=== PATIENT | female | born 2000 | race Caucasian/White ===

== ENCOUNTER 2022-10-03 02:40 | Inpatient (IN) ==
[2022-10-03] MEDS ORDERED: LIDOCAINE 1% LOCAL 20 ML VIAL INFIL PRN (03:40)
[2022-10-03] MEDS ORDERED: OXYTOCIN 30 UNITS/500 ML BAG IV PRN ×3 (03:40→19:51)
[2022-10-03 04:26] LABS: Hematocrit (blood only) 35.9 % (37.0-47.0); Hemoglobin 12.5 g/dl (12.0-16.0); Mean Corpuscular Hemoglobin 30.3 pg (25.0-34.0); Mean Corpuscular Hgb Conc 34.8 g/dL (32.0-36.0); Mean Corpuscular Volume 87.1 fL (80.0-100.0); Platelet Count 229 K/uL (130-400); RDW Coefficient of Variation 12.2 % (11.5-14.5); RDW Standard Deviation 38.7 fL (36.4-46.3); Red Blood Count 4.12 M/uL (4.20-5.40); White Blood Count 14.34 K/ul (4.8-10.8)
--- NOTE | 2022-10-03 06:45 | History & Physical Report ---
Date of Service October 03, 2022 Assessment & Plan (1) Encounter for supervision of normal intrauterine in primigravida, antepartum: Plan: 22-year-old with 30 weeks 0 days gestational age presents with spontaneous rupture of membranes early labor. 1. Fetus: Cat 1 2. Labor:early. Will augment PRN 3.GBS negative. 4. Vitals WNL (2) Large for gestational age fetus affecting management of mother: (3) SROM (spontaneous rupture of membranes): History of Present Illness Primary Care Provider: NO PCP 22-year-old currently at 30 weeks 0 days gestational age presents with spontaneous rupture of membranes And early labor. complicated by BMI greater than 35 and suspected large for gestational age with EFW at the 90th percentile. OB Labs: Blood Type O Positive 02/24/22 Antibody Screen NEGATIVE 02/24/22 Hemoglobin 12.1 g/dl (12.0-16.0) 07/28/22 Hematocrit 35.0 % (37.0-47.0) L 07/28/22 Mean Corpuscular Volume 88.2 fL (80.0-100.0) 03/10/22 Platelet Count 246 K/uL (130-400) 03/10/22 Rubella IgG Antibody Immune (Immune) 02/24/22 Rapid Plasma Reagin Nonreactive (Nonreactive) 02/24/22 Hepatitis B Surface Antigen. NON-REACTIVE (NON-REACTIVE) 02/24/22 Hepatitis C Antibody (EIA) NON-REACTIVE (NON-REACTIVE) 02/24/22 HIV (1&2) Ag and Ab Confirmation NON-REACTIVE (NON-REACTIVE) 02/24/22 Glucose 1 Hour 50 gm Load 112 mg/dl (70-130) 07/28/22 OB Optional Labs: Chlamydia trachomatis RNA NOT DETECTED (NOT DETECTED) 02/24/22 Neisseria gonorrhoeae RNA NOT DETECTED (NOT DETECTED) 02/24/22 Labs Reviewed: declined genetic testing, qs, afp--akh Allergies Allergy/AdvReac Type Severity Reaction Status Date / Time bee venom protein (honey bee) Allergy Severe Anaphylaxis Verified 10/03/22 03:01 Home Medications Medication Instructions Recorded Confirmed Type prenat.vits,babak,[id number] 1 tab PO DAILY 10/03/22 10/03/22 History Patient History Medical History (Updated 10/03/22 @ 06:46 by Jose Hernandez MD) Small for dates affecting management of mother Varicella vaccination Surgical History History of appendectomy Family History Father Diabetes Hypertension Other Heart disease Myocardial infarction Denies family history of Ovarian cancer Prostate cancer Breast cancer Colorectal cancer Social History Smoking Status: Never smoker Second Hand Exposure: No; Hx Alcohol Use: No Hx Substance Use: No Preferred Language: Brazilian Communication Ability: Effective Visual Impairment: No Limitations Hearing Ability: Normal Province Archivist Required: No Beliefs That Will Affect Care: None marital status: marital status details: Renan Welch (22) [phone] Current Living Situation: Spouse Current Living Situation Comment: Lives with spouse and dog current occupational status: employed 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 Other Information That Helps Us Care for You: No Feels Safe at Home: Yes Assistive Devices: None Physical Exam Genitourinary: normal external appearance OB Exam Abdomen: + vertex Manual OB Exam: + cervical dilation 2 cm, + cervical effacement 70%, + station - 2 and + amniotic fluid clear OB Exam Monitor Tracing: + external FHT monitor used, + external uterine monitor used, + category I and + normal FHT variability; no early decelerations present, no late decelerations present and no variable decelerations Results & Data Vital Signs (Past 12 Hours) Vital Signs Temp Pulse Resp BP 10/03/22 02:57 36.6 C 123 H 18 136/84 Coding Level of Care Code None Diagnoses Encounter for supervision of normal intrauterine in primigravida, antepartum Z34.00 Large for gestational age fetus affecting management of mother O36.60X0 SROM (spontaneous rupture of membranes)
--- NOTE | 2022-10-03 07:03 | Labor Progress Brief Note ---
Date of Service October 03, 2022 Subjective Reason For Note: Routine Evaluation reporting contraction intensity had increased slightly. Reporting contractions moderate Assessment & Plan (1) Encounter for supervision of normal intrauterine in primigravida, antepartum: Plan: 22-year-old with 30 weeks 0 days gestational age presents with spontaneous rupture of membranes early labor. 1. Fetus: Cat 1 2. Labor: cervix unchanged. will start Pitocin 3. .GBS negative. 4. Vitals WNL (2) Large for gestational age fetus affecting management of mother: (3) SROM (spontaneous rupture of membranes): Admission and Anticipated Discharge Date Admission Date: October 03, 2022 Physical Exam Genitourinary: Manual OB Exam: + cervical dilation 2 cm, + cervical effacement 70%, + station -2 and + amniotic fluid clear OB Exam Monitor Tracing: + external FHT monitor used, + external uterine monitor used, + category I and + normal FHT variability; no early decelerations present, no late decelerations present and no variable decelerations Results & Data Vital Signs (Past 12 Hours) Vital Signs Temp Pulse Resp BP 10/03/22 06:08 37.1 C 102 H 18 134/76 10/03/22 06:06 108 H 142/94 H 10/03/22 02:57 36.6 C 123 H 18 136/84 Coding Level of Care Code None Diagnoses Encounter for supervision of normal intrauterine in primigravida, antepartum Z34.00 Large for gestational age fetus affecting management of mother O36.60X0 SROM (spontaneous rupture of membranes)
[2022-10-03] MEDS: LACTATED RINGER'S 1,000 ML IV PRN ×3 (07:25→13:23)
[2022-10-03] MEDS ORDERED: ePHEDrine sulfate 50 MG/ML AMP ONE (10:24)
[2022-10-03] MEDS ORDERED: SODIUM CHLORIDE 0.9% PF INJ 10 ML VIAL ONE ×2 (10:25→17:23)
[2022-10-03] MEDS ORDERED: fentaNYL citrate PF 100 MCG/2 ML VIAL ONE ×2 (10:25→17:23)
[2022-10-03] MEDS ORDERED: BUPIVACAINE 0.25% PF 30 ML VIAL ONE ×2 (10:25→17:22)
[2022-10-03] MEDS ORDERED: LIDOCAINE 2%/EPINEPHRINE 1:200,000 20 ML PF ONE (10:25)
[2022-10-03] MEDS ORDERED: fentaNYL 2MCG/ML ROPIVACAINE 1.25MG/ML 100 ML BAG EPI ONE (10:26)
[2022-10-03] MEDS ORDERED: NALBUPHINE HCL INJ 10 MG/ML AMP IV PRN (10:34)
[2022-10-03] MEDS ORDERED: NALOXONE HCL 0.4 MG/1 ML VIAL/CARP IV PRN (10:34)
[2022-10-03] MEDS ORDERED: NALOXONE HCL 1 MG in SODIUM CHLORIDE 0.9% 1000ML 1,000 ML IV PRN (10:34)
[2022-10-03] MEDS ORDERED: fentaNYL 2MCG/ML ROPIVACAINE 1.25MG/ML 100 ML BAG EPI PRN (10:34)
[2022-10-03] MEDS ORDERED: ePHEDrine sulfate 50 MG/ML AMP IV PRN (10:34)
[2022-10-03] MEDS ORDERED: diphenhydrAMINE 50 MG/ML VIAL IV PRN (10:34)
--- NOTE | 2022-10-03 10:34 | Anesthesiology Consultation ---
Date of Service October 03, 2022 Assessment & Plan (1) Encounter for pre-operative examination: Chart Review Chart Review: Patient NOT seen in Pre Admission Testing and Acceptable Risk for Labor Epidural Consults Requested none History Height/Weight Height: 5 ft Weight: 108.862 kg Allergies Allergy/AdvReac Type Severity Reaction Status Date / Time bee venom protein (honey bee) Allergy Severe Anaphylaxis Verified 10/03/22 03:01 Medications Home Medications Medication Instructions Recorded Confirmed Last Taken prenat.vits,babak,[id number] 1 tab PO DAILY 10/03/22 10/03/22 10/02/22 Active Medications Generic Name Dose Route Start Last Admin Trade Name Freq PRN Reason Stop Dose Admin Lactated Ringer's 1,000 mls @ 125 mls/hr 10/03/22 03:40 10/03/22 07:25 Lr IV 10/05/22 03:39 125 mls/hr .Q8H PRN Administration L&D Protocol Protocol Oxytocin 30 units in 500 mls @ 12 mls/hr 10/03/22 07:01 10/03/22 10:05 Pitocin IV 10/05/22 07:00 0.72 units/hr .Q24H PRN 12 mls/hr Labor Induction/Augmentation Titration Protocol 0.72 UNITS/HR Past Medical History Medical History Small for dates affecting management of mother Varicella vaccination Past Family History Family History Father Diabetes Hypertension Other Heart disease Myocardial infarction Denies family history of Ovarian cancer Prostate cancer Breast cancer Colorectal cancer Past Surgical History Surgical History History of appendectomy Social History Smoking Status: Never smoker Hx Alcohol Use: No Hx Substance Use: No substance use type: does not use Physical Exam Vital Signs Last Vital Signs Temp 98.4 F 10/03/22 09:20 Pulse 105 H 10/03/22 09:32 Resp 20 10/03/22 09:20 BP 136/86 10/03/22 09:32 Testing Laboratory Results 10/03/22 03:57 Blood Type O Positive 10/03/22 03:57 Antibody Screen NEGATIVE 10/03/22 03:57
--- NOTE | 2022-10-03 13:38 | Labor Progress Brief Note ---
Date of Service October 03, 2022 Subjective comfortable Assessment & Plan (1) SROM (spontaneous rupture of membranes): Plan restart pitocin, fetus category one. resume pitocin. Monitor contractions. Admission and Anticipated Discharge Date Admission Date: October 03, 2022 Physical Exam Physical Exam: cx--5-6//-2 iupc placed toco--had a break from the pit, fht improved, restarting at 1/2 efm--150s with min to mod variability, accels present spontaneous, did have a p eriod of ? late decels that have resolved. Results & Data Vital Signs (Past 12 Hours) Vital Signs Temp Pulse Resp BP Pulse Ox 10/03/22 07:20 36.7 C 20 10/03/22 13:30 110 H 98 10/03/22 13:28 95 H 131/63 10/03/22 13:25 98 H 98 10/03/22 13:20 104 H 98 10/03/22 13:15 101 H 99 10/03/22 13:14 102 H 125/65 10/03/22 13:13 104 H 90 10/03/22 13:10 106 H 98 10/03/22 13:05 102 H 98 10/03/22 13:00 96 H 98 10/03/22 12:58 94 H 135/64 10/03/22 12:55 96 H 96 10/03/22 12:50 101 H 96 10/03/22 12:45 113 H 95 10/03/22 12:43 99 H 120/58 L 10/03/22 12:41 110 H 90 10/03/22 12:40 115 H 94 10/03/22 12:35 110 H 97 10/03/22 12:30 104 H 96 10/03/22 12:28 99 H 108/55 L 10/03/22 12:25 109 H 98 10/03/22 12:01 20 10/03/22 12:01 20 10/03/22 12:20 110 H 97 10/03/22 12:15 114 H 20 96 10/03/22 12:10 104 H 118/60 97 10/03/22 12:05 105 H 122/64 98 10/03/22 12:02 101 H 132/69 10/03/22 12:00 102 H 91 10/03/22 11:55 92 H 04/23 11:55 92 H 127/85 99 10/03/22 11:51 97 H 121/72 10/03/22 11:50 96 H 100 10/03/22 11:45 97 H 100 10/03/22 11:46 93 H 20 117/73 10/03/22 11:40 97 H 121/68 99 10/03/22 11:37 96 H 123/62 10/03/22 11:35 106 H 100 10/03/22 11:31 96 H 91 10/03/22 11:30 95 H 20 100 10/03/22 11:25 101 H 99 10/03/22 11:22 93 H 115/69 10/03/22 11:20 93 H 10/03/22 11:20 98 H 117/69 100 10/03/22 11:16 88 118/60 10/03/22 11:14 82 93 10/03/22 11:15 37.0 C 79 20 95 10/03/22 11:12 113 H 91/45 L 10/03/22 11:10 121 H 93/51 L 98 10/03/22 11:08 126 H 104/55 L 10/03/22 11:06 114 H 114/59 L 10/03/22 11:05 109 H 99 10/03/22 11:04 111 H 135/81 10/03/22 11:02 95 H 135/76 10/03/22 11:00 93 H 97 10/03/22 10:59 92 H 139/83 10/03/22 10:55 115 H 99 10/03/22 10:53 117 H 140/92 10/03/22 10:50 102 H 98 10/03/22 10:49 106 H 134/92 10/03/22 09:20 20 10/03/22 09:20 36.9 C 20 10/03/22 09:32 105 H 136/86 10/03/22 08:27 98 H 128/74 10/03/22 07:16 95 H 136/68 10/03/22 06:08 37.1 C 102 H 18 134/76 10/03/22 06:06 108 H 142/94 H 10/03/22 02:57 36.6 C 123 H 18 136/84 Coding Level of Care Code None Diagnoses SROM (spontaneous rupture of membranes)
--- NOTE | 2022-10-03 15:47 | Labor Progress Brief Note ---
Date of Service October 03, 2022 Subjective comfortable Assessment & Plan (1) SROM (spontaneous rupture of membranes): Plan continue careful monitoring of fetus. Overall reassuring strip and making good changed. Halved pit. Monitor closely. Concerned by position, still high. Admission and Anticipated Discharge Date Admission Date: October 03, 2022 Physical Exam Physical Exam: bloody show cx--8-9cm/100/0 toco--q2-4min, coupling and tripling, decreased pit from 14 to 7 efm--150s with mod variability, small accels, variables with some contractions, occasional ? late, resolving with position changes Results & Data Vital Signs (Past 12 Hours) Vital Signs Temp Pulse Resp BP Pulse Ox 10/03/22 07:20 36.7 C 20 10/03/22 15:42 129 H 122/69 10/03/22 15:39 96 H 94 10/03/22 15:40 96 H 96 10/03/22 15:35 97 H 96 10/03/22 15:30 100 H 97 10/03/22 15:27 96 H 118/58 L 10/03/22 15:25 95 H 97 10/03/22 15:20 97 H 96 10/03/22 15:15 113 H 95 10/03/22 15:12 107 H 124/70 10/03/22 15:10 109 H 97 10/03/22 15:05 98 H 95 10/03/22 15:00 96 H 96 10/03/22 14:58 90 124/62 10/03/22 14:55 99 H 96 10/03/22 14:50 118 H 97 10/03/22 14:45 101 H 97 10/03/22 14:44 97 H 133/63 10/03/22 14:40 108 H 97 10/03/22 14:35 109 H 96 10/03/22 14:30 107 H 97 10/03/22 14:27 93 H 126/58 L 10/03/22 14:25 93 H 97 10/03/22 14:20 102 H 99 10/03/22 14:15 102 H 98 10/03/22 14:12 96 H 135/65 10/03/22 14:10 90 97 10/03/22 14:07 94 H 93 10/03/22 14:05 90 97 10/03/22 14:00 107 H 97 10/03/22 13:59 102 H 132/89 10/03/22 13:55 103 H 97 10/03/22 13:50 98 H 97 10/03/22 13:45 97 H 98 10/03/22 13:01 20 10/03/22 13:01 20 10/03/22 13:43 94 H 139/73 10/03/22 13:40 98 H 96 10/03/22 13:35 109 H 97 10/03/22 13:30 110 H 98 10/03/22 13:28 95 H 131/63 10/03/22 13:25 98 H 98 10/03/22 13:20 104 H 98 10/03/22 13:15 101 H 99 10/03/22 13:14 102 H 125/65 10/03/22 13:13 104 H 90 10/03/22 13:10 106 H 98 10/03/22 13:05 102 H 98 10/03/22 13:00 96 H 98 10/03/22 12:58 94 H 135/64 10/03/22 12:55 96 H 96 10/03/22 12:50 101 H 96 10/03/22 12:45 113 H 20 95 10/03/22 12:43 99 H 120/58 L 10/03/22 12:41 110 H 90 10/03/22 12:40 115 H 94 10/03/22 12:35 110 H 97 10/03/22 12:30 36.5 C 104 H 20 96 10/03/22 12:28 99 H 108/55 L 10/03/22 12:25 109 H 98 10/03/22 12:01 20 10/03/22 12:01 20 10/03/22 12:20 110 H 97 10/03/22 12:15 114 H 20 96 10/03/22 12:10 104 H 118/60 97 10/03/22 12:05 105 H 122/64 98 10/03/22 12:02 101 H 132/69 10/03/22 12:00 102 H 91 10/03/22 11:55 92 H 10/03/22 11:55 92 H 127/85 99 10/03/22 11:51 97 H 121/72 10/03/22 11:50 96 H 100 10/03/22 11:45 97 H 100 10/03/22 11:46 93 H 20 117/73 10/03/22 11:40 97 H 121/68 99 10/03/22 11:37 96 H 123/62 10/03/22 11:35 106 H 100 10/03/22 11:31 96 H 91 10/03/22 11:30 95 H 20 100 10/03/22 11:25 101 H 99 10/03/22 11:22 93 H 115/69 10/03/22 11:20 93 H 10/03/22 11:20 98 H 117/69 100 10/03/22 11:16 88 118/60 10/03/22 11:14 82 93 10/03/22 11:15 37.0 C 79 20 95 10/03/22 11:12 113 H 91/45 L 10/03/22 11:10 121 H 93/51 L 98 10/03/22 11:08 126 H 104/55 L 10/03/22 11:06 114 H 114/59 L 10/03/22 11:05 109 H 99 10/03/22 11:04 111 H 135/81 10/03/22 11:02 95 H 135/76 10/03/22 11:00 93 H 97 10/03/22 10:59 92 H 139/83 10/03/22 10:55 115 H 99 10/03/22 10:53 117 H 140/92 10/03/22 10:50 102 H 98 10/03/22 10:49 106 H 134/92 10/03/22 09:20 20 10/03/22 09:20 36.9 C 20 10/03/22 09:32 105 H 136/86 10/03/22 08:27 98 H 128/74 10/03/22 07:16 95 H 136/68 10/03/22 06:08 37.1 C 102 H 18 134/76 10/03/22 06:06 108 H 142/94 H Coding Level of Care Code None Diagnoses SROM (spontaneous rupture of membranes)
--- NOTE | 2022-10-03 15:59 | Communication Note ---
Date of Service: October 03, 2022 Having more late appearing decels. Pitocin now off. Will see how baby does. If recovers, will continue but probably keep pit off. Monitor closely.
--- NOTE | 2022-10-03 16:31 | Communication Note ---
Date of Service: October 03, 2022 ctx have spaced. fht have improved, late appearing decels have resolved. +spon accels. Notes pressure with contractions. Will allow to labor down at this point.
--- NOTE | 2022-10-03 17:04 | Labor Progress Brief Note ---
Date of Service October 03, 2022 Subjective Feeling lots of pressure with contractions Assessment & Plan (1) SROM (spontaneous rupture of membranes): Plan Will attempt to labor down. May need to consider epidural redose. fetus overall reassuring. Admission and Anticipated Discharge Date Admission Date: October 03, 2022 Physical Exam Physical Exam: cx--slight lip on right toco--q4min efm--150s with mod variabiltiy, accels present, decels have pretty much resolved. Results & Data Vital Signs (Past 12 Hours) Vital Signs Temp Pulse Resp BP Pulse Ox 10/03/22 07:20 36.7 C 20 10/03/22 17:00 98 H 95 10/03/22 16:57 105 H 147/80 H 10/03/22 16:55 112 H 99 10/03/22 16:50 123 H 98 10/03/22 16:45 107 H 97 10/03/22 16:42 103 H 141/74 H 10/03/22 16:40 104 H 98 10/03/22 16:35 110 H 100 10/03/22 16:30 106 H 100 10/03/22 16:28 102 H 144/71 H 10/03/22 16:25 119 H 99 10/03/22 16:20 107 H 100 10/03/22 16:17 100 H 93 10/03/22 16:15 107 H 100 10/03/22 16:10 106 H 100 10/03/22 16:05 104 H 92 10/03/22 16:00 101 H 97 10/03/22 15:59 96 H 93 10/03/22 15:57 105 H 130/71 10/03/22 15:55 97 H 98 10/03/22 15:50 96 H 97 10/03/22 15:45 103 H 97 10/03/22 15:42 129 H 122/69 10/03/22 15:39 96 H 94 10/03/22 15:40 96 H 96 10/03/22 15:35 97 H 96 10/03/22 15:30 100 H 97 10/03/22 15:27 96 H 118/58 L 10/03/22 15:25 95 H 97 10/03/22 15:20 97 H 96 10/03/22 15:15 113 H 95 10/03/22 15:12 107 H 124/70 04/03/23 15:10 109 H 97 10/03/22 15:05 98 H 95 10/03/22 15:00 96 H 96 10/03/22 14:58 90 124/62 10/03/22 14:55 99 H 96 10/03/22 14:50 118 H 97 10/03/22 14:45 101 H 97 10/03/22 14:44 97 H 133/63 10/03/22 14:40 108 H 97 10/03/22 14:35 109 H 96 10/03/22 14:30 107 H 97 10/03/22 14:27 93 H 126/58 L 10/03/22 14:25 93 H 97 10/03/22 14:20 102 H 99 10/03/22 14:15 102 H 98 10/03/22 14:12 96 H 135/65 10/03/22 14:10 90 97 10/03/22 14:07 94 H 93 10/03/22 14:05 90 97 10/03/22 14:00 107 H 97 10/03/22 13:59 102 H 132/89 10/03/22 13:55 103 H 97 10/03/22 13:50 98 H 97 10/03/22 13:45 97 H 98 10/03/22 13:01 20 10/03/22 13:01 20 10/03/22 13:43 94 H 139/73 10/03/22 13:40 98 H 96 10/03/22 13:35 109 H 97 10/03/22 13:30 110 H 98 10/03/22 13:28 95 H 131/63 10/03/22 13:25 98 H 98 10/03/22 13:20 104 H 98 10/03/22 13:15 101 H 99 10/03/22 13:14 102 H 125/65 10/03/22 13:13 104 H 90 10/03/22 13:10 106 H 98 10/03/22 13:05 102 H 98 10/03/22 13:00 96 H 98 10/03/22 12:58 94 H 135/64 10/03/22 12:55 96 H 96 10/03/22 12:50 101 H 96 10/03/22 12:45 113 H 20 95 10/03/22 12:43 99 H 120/58 L 04/03/23 12:41 110 H 90 10/03/22 12:40 115 H 94 10/03/22 12:35 110 H 97 10/03/22 12:30 36.5 C 104 H 20 96 10/03/22 12:28 99 H 108/55 L 10/03/22 12:25 109 H 98 10/03/22 12:01 20 10/03/22 12:01 20 10/03/22 12:20 110 H 97 10/03/22 12:15 114 H 20 96 10/03/22 12:10 104 H 118/60 97 10/03/22 12:05 105 H 122/64 98 10/03/22 12:02 101 H 132/69 10/03/22 12:00 102 H 91 10/03/22 11:55 92 H 10/03/22 11:55 92 H 127/85 99 10/03/22 11:51 97 H 121/72 10/03/22 11:50 96 H 100 10/03/22 11:45 97 H 100 10/03/22 11:46 93 H 20 117/73 10/03/22 11:40 97 H 121/68 99 10/03/22 11:37 96 H 123/62 10/03/22 11:35 106 H 100 10/03/22 11:31 96 H 91 10/03/22 11:30 95 H 20 100 10/03/22 11:25 101 H 99 10/03/22 11:22 93 H 115/69 10/03/22 11:20 93 H 10/03/22 11:20 98 H 117/69 100 10/03/22 11:16 88 118/60 10/03/22 11:14 82 93 10/03/22 11:15 37.0 C 79 20 95 10/03/22 11:12 113 H 91/45 L 10/03/22 11:10 121 H 93/51 L 98 10/03/22 11:08 126 H 104/55 L 10/03/22 11:06 114 H 114/59 L 10/03/22 11:05 109 H 99 10/03/22 11:04 111 H 135/81 10/03/22 11:02 95 H 135/76 10/03/22 11:00 93 H 97 10/03/22 10:59 92 H 139/83 10/03/22 10:55 115 H 99 10/03/22 10:53 117 H 140/92 10/03/22 10:50 102 H 98 10/03/22 10:49 106 H 134/92 10/03/22 09:20 20 10/03/22 09:20 36.9 C 20 10/03/22 09:32 105 H 136/86 10/03/22 08:27 98 H 128/74 10/03/22 07:16 95 H 136/68 10/03/22 06:08 37.1 C 102 H 18 134/76 10/03/22 06:06 108 H 142/94 H Coding Level of Care Code None Diagnoses SROM (spontaneous rupture of membranes)
[2022-10-03] MEDS ORDERED: NURSING L&D Epidural Breakthrough Pain Update ONE (17:06)
--- NOTE | 2022-10-03 17:28 | Anesthesia Procedure Note ---
Date of Service October 03, 2022 Anesthesia Epidural Re-Dose Vital Signs Temp Pulse Resp BP Pulse Ox 98.8 F 107 H 20 147/70 H 96 10/03/22 17:12 10/03/22 17:25 10/03/22 13:01 10/03/22 17:12 10/03/22 17:25 Notes Pain Intensity: 8 Dilatation (cm): 9.5 Effacement (%): 80 Heart Rate: 155 Called by nursing to evaluate epidural as the patient is having increased pain. The epidural was re-dosed with the following medications after negative aspiration of the epidural catheter for CSF/HEME. Bupivacaine (8ml) with 100 mcg Fentanyl After Epidural Re-Dose Mental Status: alert / awake / arousable Pain: improving with treatment Airway Patency, RR, SpO2: stable & adequate BP & HR: stable & adequate
--- NOTE | 2022-10-03 19:09 | Labor Progress Brief Note ---
Date of Service October 03, 2022 Subjective redosed and was comfortable, now feeling pressure again Assessment & Plan (1) SROM (spontaneous rupture of membranes): Plan Begin second stage recent temp 37.8. Anticipate . Admission and Anticipated Discharge Date Admission Date: October 03, 2022 Physical Exam Physical Exam: cx--c/c/+1-2 toco--q 3-4min, pit off efm--150s wtih mod variability, small accels, no further decels noted Results & Data Vital Signs (Past 12 Hours) Vital Signs Temp Pulse Resp BP Pulse Ox 10/03/22 07:20 36.7 C 20 10/03/22 19:05 131 H 99 10/03/22 19:00 111 H 97 10/03/22 18:56 113 H 139/90 10/03/22 18:55 114 H 96 10/03/22 18:50 111 H 97 10/03/22 18:45 109 H 97 10/03/22 18:40 101 H 142/81 H 97 10/03/22 18:35 97 H 95 10/03/22 18:30 95 H 95 10/03/22 18:28 101 H 92 10/03/22 18:25 110 H 99 10/03/22 18:24 100 H 143/73 H 10/03/22 18:20 103 H 96 10/03/22 18:15 109 H 97 10/03/22 18:10 110 H 97 10/03/22 18:05 113 H 97 10/03/22 18:00 100 H 97 10/03/22 17:55 110 H 99 10/03/22 17:54 100 H 135/68 10/03/22 17:52 100 H 94 10/03/22 17:50 107 H 95 10/03/22 17:46 105 H 94 10/03/22 17:45 102 H 97 10/03/22 17:43 100 H 146/77 H 10/03/22 17:42 100 H 145/76 H 10/03/22 17:40 101 H 150/65 H 94 10/03/22 17:39 97 H 92 10/03/22 17:38 104 H 161/75 H 10/03/22 17:36 92 H 148/64 H 10/03/22 17:35 105 H 97 10/03/22 17:34 94 H 147/65 H 93 10/03/22 17:30 105 H 97 10/03/22 17:29 108 H 152/79 H 10/03/22 17:28 122 H 84 L 10/03/22 17:25 107 H 96 10/03/22 17:20 111 H 99 10/03/22 17:15 102 H 97 10/03/22 17:13 111 H 93 10/03/22 17:12 37.1 C 100 H 147/70 H 10/03/22 17:10 108 H 86 L 10/03/22 17:07 118 H 92 10/03/22 17:05 108 H 97 10/03/22 17:01 107 H 93 10/03/22 17:00 98 H 95 10/03/22 16:57 105 H 147/80 H 10/03/22 16:55 112 H 99 10/03/22 16:50 123 H 98 10/03/22 16:45 107 H 97 10/03/22 16:42 103 H 141/74 H 10/03/22 16:40 104 H 98 10/03/22 16:35 110 H 100 10/03/22 16:30 106 H 100 10/03/22 16:28 102 H 144/71 H 10/03/22 16:25 119 H 99 10/03/22 16:20 107 H 100 10/03/22 16:17 100 H 93 10/03/22 16:15 107 H 100 10/03/22 16:10 106 H 100 10/03/22 16:05 104 H 92 10/03/22 16:00 101 H 97 10/03/22 15:59 96 H 93 10/03/22 15:57 105 H 130/71 10/03/22 15:55 97 H 98 10/03/22 15:50 96 H 97 10/03/22 15:45 103 H 97 10/03/22 15:42 129 H 122/69 10/03/22 15:39 96 H 94 10/03/22 15:40 96 H 96 10/03/22 15:35 97 H 96 10/03/22 15:30 100 H 97 10/03/22 15:27 96 H 118/58 L 10/03/22 15:25 95 H 97 10/03/22 15:20 97 H 96 10/03/22 15:15 113 H 95 10/03/22 15:12 107 H 124/70 10/03/22 15:10 109 H 97 10/03/22 15:05 98 H 95 10/03/22 15:00 96 H 96 10/03/22 14:58 90 124/62 10/03/22 14:55 99 H 96 10/03/22 14:50 118 H 97 10/03/22 14:45 101 H 97 10/03/22 14:44 97 H 133/63 10/03/22 14:40 108 H 97 10/03/22 14:35 109 H 96 10/03/22 14:30 107 H 97 10/03/22 14:27 93 H 126/58 L 10/03/22 14:25 93 H 97 10/03/22 14:20 102 H 99 10/03/22 14:15 102 H 98 10/03/22 14:12 96 H 135/65 10/03/22 14:10 90 97 10/03/22 14:07 94 H 93 10/03/22 14:05 90 97 10/03/22 14:00 107 H 97 10/03/22 13:59 102 H 132/89 10/03/22 13:55 103 H 97 10/03/22 13:50 98 H 97 10/03/22 13:45 97 H 98 10/03/22 13:01 20 10/03/22 13:01 20 10/03/22 13:43 94 H 139/73 10/03/22 13:40 98 H 96 10/03/22 13:35 109 H 97 10/03/22 13:30 110 H 98 10/03/22 13:28 95 H 131/63 10/03/22 13:25 98 H 98 10/03/22 13:20 104 H 98 10/03/22 13:15 101 H 99 10/03/22 13:14 102 H 125/65 10/03/22 13:13 104 H 90 10/03/22 13:10 106 H 98 10/03/22 13:05 102 H 98 10/03/22 13:00 96 H 98 10/03/22 12:58 94 H 135/64 10/03/22 12:55 96 H 96 10/03/22 12:50 101 H 96 10/03/22 12:45 113 H 20 95 10/03/22 12:43 99 H 120/58 L 10/03/22 12:41 110 H 90 10/03/22 12:40 115 H 94 10/03/22 12:35 110 H 97 10/03/22 12:30 36.5 C 104 H 20 96 10/03/22 12:28 99 H 108/55 L 10/03/22 12:25 109 H 98 10/03/22 12:01 20 10/03/22 12:01 20 10/03/22 12:20 110 H 97 10/03/22 12:15 114 H 20 96 10/03/22 12:10 104 H 118/60 97 10/03/22 12:05 105 H 122/64 98 10/03/22 12:02 101 H 132/69 10/03/22 12:00 102 H 91 10/03/22 11:55 92 H 10/03/22 11:55 92 H 127/85 99 10/03/22 11:51 97 H 121/72 10/03/22 11:50 96 H 100 10/03/22 11:45 97 H 100 10/03/22 11:46 93 H 20 117/73 10/03/22 11:40 97 H 121/68 99 10/03/22 11:37 96 H 123/62 10/03/22 11:35 106 H 100 10/03/22 11:31 96 H 91 10/03/22 11:30 95 H 20 100 10/03/22 11:25 101 H 99 10/03/22 11:22 93 H 115/69 10/03/22 11:20 93 H 10/03/22 11:20 98 H 117/69 100 10/03/22 11:16 88 118/60 10/03/22 11:14 82 93 10/03/22 11:15 37.0 C 79 20 95 10/03/22 11:12 113 H 91/45 L 10/03/22 11:10 121 H 93/51 L 98 10/03/22 11:08 126 H 104/55 L 10/03/22 11:06 114 H 114/59 L 10/03/22 11:05 109 H 99 10/03/22 11:04 111 H 135/81 10/03/22 11:02 95 H 135/76 10/03/22 11:00 93 H 97 10/03/22 10:59 92 H 139/83 10/03/22 10:55 115 H 99 10/03/22 10:53 117 H 140/92 10/03/22 10:50 102 H 98 10/03/22 10:49 106 H 134/92 10/03/22 09:20 20 10/03/22 09:20 36.9 C 20 10/03/22 09:32 105 H 136/86 10/03/22 08:27 98 H 128/74 10/03/22 07:16 95 H 136/68 Coding Level of Care Code None Diagnoses SROM (spontaneous rupture of membranes)
[2022-10-03] MEDS ORDERED: DIPHTHERIA/TETANUS/PERTUSSIS 0.5mL SYR/VIAL (Age 7+yrs) IM ONE (19:51)
[2022-10-03] MEDS ORDERED: METHYLERGONOVINE MALEATE 0.2 MG/ML AMP IM ONE (19:51)
[2022-10-03] MEDS ORDERED: ACETAMINOPHEN 325 MG TAB PO PRN (19:51)
[2022-10-03] MEDS ORDERED: oxyCODONE/ACETAMINOPHEN 5mg/325mg TAB PO PRN (19:51)
[2022-10-03] MEDS ORDERED: BENZOCAINE 20% AER SPR 82.5 GM CAN EXT PRN (19:51)
[2022-10-03] MEDS ORDERED: bisacodyL 10 MG SUPP PR PRN (19:51)
[2022-10-03] MEDS ORDERED: HYDROCORTISONE ACETATE 25 MG SUPP PR PRN (19:51)
--- NOTE | 2022-10-03 19:56 | Delivery Summary ---
Vaginal Delivery Summary Date of Service October 03, 2022 Vaginal Delivery Summary and 2nd Degree LAC (bilateral labial as well) Pre-operative Diagnosis: at 37 6/7 prom Post-operative Diagnosis: same Procedure: pitocin augmentation iupc second degree and bilateral labial lacs with repair EBL: 400cc Anesthesia: epidural Procedure: the patient presented with srom of clear fluid. Allowed expectant management but not change. Pit augmentation started. Got epidural. REquired iupc for contractions/pitocin management. Had a few late decels that resolved with position change, fluids and d/c pit. Eventually pitocin d/c. Pateint had epidural redosed and then labored down for two hours. Fetus during this time was category one. The patient pushed for about 30 min to deliver a viable male infant in bernabe position. The nose and mouth were bulb suctioned on the perineum and the rest of the was then delivered without difficulty. The baby was vigorous. The nose and mouth were again bulb suctioned and the infant was placed in the maternal abdomen for drying and attention. Cord was clamped and cut at one minute of life. Cord blood and segment obtained. Placenta delivered spontaneous, intact with a three vessel cord. Cervix/sulci/rectum were intact. A second degree perineal laceration and bilateral labial lacs were repaired in the normal standard fashion. Hemostasis obtained with dilute pitocin. IM methergine and fundal massage. Apgars were 8/9. Mother and baby doing well at the end of the delivery. [facility] [place] Vaginal Delivery Charge Delivery Type Details: and 2nd Degree LAC (bilateral labial as well)
[2022-10-03] MEDS ORDERED: METHYLERGONOVINE MALEATE 0.2 MG/ML AMP ONE (19:57)
[2022-10-03] MEDS: IBUPROFEN 600 MG TAB PO PRN (21:21)
[2022-10-03] MEDS: DOCUSATE SODIUM 100 MG CAP PO SCH (21:22)
--- NOTE | 2022-10-03 21:38 | Anesthesia Procedure Note ---
Date of Service October 03, 2022 Anesthesia Post Epidural Note Vital Signs Vital Signs: Temp Pulse Resp BP Pulse Ox 98.2 F 104 H 16 129/62 96 10/03/22 20:04 10/03/22 21:34 10/03/22 21:18 10/03/22 21:34 10/03/22 19:50 Pain Intensity Bilateral Abdomen: Pain Intensity: 4 Episiotomy/Laceration: Pain Intensity: 2 Notes Mental Status: alert / awake / arousable and participated in evaluation Nausea / Vomiting: adequately controlled Pain: adequately controlled Airway Patency, RR, SpO2: stable & adequate BP & HR: stable & adequate Hydration State: stable & adequate Neuraxial Anesthesia: was administered and sensory block is resolving Anesthetic Complications: no major complications apparent and Pt Satisfied with anesthetic care Epidural: Removed without complications and With tip intact
[2022-10-04] MEDS: IBUPROFEN 600 MG TAB PO PRN ×3 (05:41→22:46)
--- NOTE | 2022-10-04 06:25 | Obstetrical Progress Note ---
Date of Service October 04, 2022 Assessment & Plan (1) Encounter for care after hospital delivery: (2) Large for gestational age fetus affecting management of mother: Plan - Overall, feeling well and eating well today - Infant feeding going well without concern - Urinating and passing gas appropriately - Ambulating well in room - Pain controlled w/ Ibuprofen - Hgb 12.5 on 10/03 - Vitals stable and wnl - Follow BP: few elevations overnight, now wnl, asymptomatic at present - Routine PP care progressing well - Anticipate discharge @ 24-48 hours PP - Recommending f/u outpatient in 6 weeks Admission and Anticipated Discharge Date Admission Date: October 03, 2022 Supervising Physician Co-Signing Physician Notes Resident Physician Supervision Note: I interviewed and examined the patient. Discussed with Dr. Mckeon and agree with findings and plan as documented in the note. Any exceptions or clarifications a re listed here: Doing well ppd 1. Routine care. Documented By: Suzie Giron MD, FACOG Subjective Patient is a 22F who is PPD #1 following delivery at 38 1/. She reports feeling well overall this morning. - Ambulation - well throughout room - Voiding/Lui - independent voids, no dysuria or pressure - Gas/Stool - passing gas, no bowel movement - Diet - regular, no nausea or emesis - Lochia - diminishing, moderate amount - Feeding Type - breast feeding - Pain Level - 2/10, controlled with Ibuprofen Review of Systems - Denies fever, chills, sweats - Denies shortness of breath, difficulty breathing, chest pain, palpitations, chest pressure. - Denies breast pain. - Denies dysuria. - Denies headache or changes in vision. Physical Exam Physical Exam: General: Alert, oriented. No acute distress. Cardiac: RRR, normal S1/S2, no murmurs/rubs/gallops. Respiratory: Non-labored, CTAB, no wheezes/rales/rhonchi. Symmetric chest rise. Abdomen: Soft, nontender, nondistended. Bowel sounds present. Uterus: Uterine fundus firm, palpable 2 cm below umbilicus. Lower Extremities: No lower extremity edema or swelling. No deep calf pain. Debra's negative bilaterally. Results & Data Vital Signs (Past 12 Hours) Vital Signs Temp Pulse Pulse Resp BP BP Pulse Ox 10/04/22 02:56 36.6 C 98 H 18 118/72 97 10/03/22 21:49 36.8 C 18 10/03/22 22:13 37.4 C 101 H 18 138/83 97 10/03/22 21:18 16 10/03/22 20:49 16 10/03/22 20:34 16 10/03/22 20:19 18 10/03/22 20:04 36.8 C 16 10/03/22 19:49 18 10/03/22 19:07 37.8 C H 18 10/03/22 21:49 103 H 141/65 H 10/03/22 21:34 104 H 129/62 10/03/22 21:24 112 H 138/61 10/03/22 21:21 99 H 161/69 H 10/03/22 21:18 97 H 129/60 10/03/22 21:04 105 H 168/82 H 10/03/22 20:49 109 H 170/74 H 10/03/22 20:34 121 H 146/70 H 10/03/22 20:19 115 H 146/69 H 10/03/22 20:04 123 H 162/65 H 10/03/22 19:50 122 H 96 10/03/22 19:49 123 H 140/64 10/03/22 19:45 123 H 96 10/03/22 19:40 132 H 96 10/03/22 19:38 142 H 144/66 H 10/03/22 19:35 149 H 97 10/03/22 19:30 154 H 96 10/03/22 19:29 144 H 90 10/03/22 19:25 161 H 98 10/03/22 19:24 131 H 158/72 H 10/03/22 19:22 136 H 88 L 10/03/22 19:20 156 H 95 10/03/22 19:17 147 H 94 10/03/22 19:15 125 H 97 10/03/22 19:10 130 H 97 10/03/22 19:09 109 H 149/80 H 10/03/22 19:05 131 H 99 10/03/22 19:00 111 H 97 10/03/22 18:56 113 H 139/90 10/03/22 18:55 114 H 96 10/03/22 18:50 111 H 97 10/03/22 18:45 109 H 97 10/03/22 18:40 101 H 142/81 H 97 10/03/22 18:35 97 H 95 10/03/22 18:30 95 H 95 10/03/22 18:28 101 H 92 10/03/22 18:25 110 H 99 10/03/22 18:24 100 H 143/73 H O2 Del Method 10/04/22 02:56 Room Air 10/03/22 21:49 10/03/22 22:13 Room Air 10/03/22 21:18 10/03/22 20:49 10/03/22 20:34 10/03/22 20:19 10/03/22 20:04 10/03/22 19:49 10/03/22 19:07 10/03/22 21:49 10/03/22 21:34 10/03/22 21:24 10/03/22 21:21 10/03/22 21:18 10/03/22 21:04 10/03/22 20:49 10/03/22 20:34 10/03/22 20:19 10/03/22 20:04 10/03/22 19:50 10/03/22 19:49 10/03/22 19:45 10/03/22 19:40 10/03/22 19:38 10/03/22 19:35 10/03/22 19:30 10/03/22 19:29 10/03/22 19:25 10/03/22 19:24 10/03/22 19:22 10/03/22 19:20 10/03/22 19:17 10/03/22 19:15 10/03/22 19:10 10/03/22 19:09 10/03/22 19:05 10/03/22 19:00 10/03/22 18:56 10/03/22 18:55 10/03/22 18:50 10/03/22 18:45 10/03/22 18:40 10/03/22 18:35 10/03/22 18:30 10/03/22 18:28 10/03/22 18:25 10/03/22 18:24 Resident Activity Tracking Resident Involvement: Resident Care Provided Care Provided: OB Delivery
[2022-10-04 07:29] LABS: Hematocrit (blood only) 29.1 % (37.0-47.0); Hemoglobin 10.2 g/dl (12.0-16.0)
[2022-10-04] MEDS: PRENATAL VITAMIN 1 TAB PO SCH (08:00)
[2022-10-04] MEDS: DOCUSATE SODIUM 100 MG CAP PO SCH ×2 (08:00→20:49)
[2022-10-04] MEDS ORDERED: bisacodyL 5 MG TABEC PO SCH (20:00)
--- NOTE | 2022-10-05 06:39 | Obstetrical Progress Note ---
Date of Service October 05, 2022 Assessment & Plan (1) Encounter for care after hospital delivery: (2) Large for gestational age fetus affecting management of mother: Plan - Overall, feeling well and eating well today - Infant feeding going well without concern - Urinating and passing gas appropriately - Ambulating well in room - Pain controlled w/ Ibuprofen - Hgb 12.5 on 10/03, 10.2 on 10/04 - Vitals stable and wnl - Routine PP care progressing well - Anticipate discharge @ 24-48 hours PP - Recommending f/u outpatient in 6 weeks Admission and Anticipated Discharge Date Admission Date: October 03, 2022 Supervising Physician Co-Signing Physician Notes Resident Physician Supervision Note: I was present with Dr. Gaspar during the history and exam. I discussed the case with the resident and agree with the findings and plan as documented in the note. Any exceptions or clarifications are listed here: [None] Documented By: Adelia Castañeda MD, FACOG Subjective Patient is a 22F who is PPD #2 following delivery at 38 1/. She reports feeling well overall this morning. - Ambulation - well throughout room - Voiding/Lui - independent voids, no dysuria or pressure - Gas/Stool - passing gas, no bowel movement - Diet - regular, no nausea or emesis - Lochia - diminishing, light amount - Feeding Type - breast feeding - Pain Level - 2/10, controlled with Ibuprofen Review of Systems - Denies fever, chills, sweats - Denies shortness of breath, difficulty breathing, chest pain, palpitations, chest pressure. - Denies breast pain. - Denies dysuria. - Denies headache or changes in vision. Physical Exam Physical Exam: General: Alert, oriented. No acute distress. Cardiac: RRR, normal S1/S2, no murmurs/rubs/gallops. Respiratory: Non-labored, CTAB, no wheezes/rales/rhonchi. Symmetric chest rise. Abdomen: Soft, nontender, nondistended. Bowel sounds present. Uterus: Uterine fundus firm, palpable 2 cm below umbilicus. Lower Extremities: No lower extremity edema or swelling. No deep calf pain. Debra's negative bilaterally. Results & Data Vital Signs (Past 12 Hours) Vital Signs Temp Pulse Resp BP Pulse Ox O2 Del Method 10/05/22 00:35 37.0 C 96 H 18 110/71 98 Room Air 10/04/22 20:45 36.7 C 90 18 114/75 98 Room Air Resident Activity Tracking Resident Involvement: Resident Care Provided Care Provided: OB Delivery
[2022-10-05] MEDS: IBUPROFEN 600 MG TAB PO PRN (08:05)
[2022-10-05] MEDS: DOCUSATE SODIUM 100 MG CAP PO SCH (08:06)
[2022-10-05] MEDS: PRENATAL VITAMIN 1 TAB PO SCH (08:06)
== END 2022-10-05 13:15 | disposition home or self-care (01) | DRG 807 ==
LOC: OPB 02:40 → 4S1 02:42 → 4E2 22:51

== ENCOUNTER 2024-08-21 11:09 | Inpatient (IN) ==
[2024-08-21] MEDS ORDERED: LIDOCAINE 1% LOCAL 20 ML VIAL INFIL PRN (12:25)
--- NOTE | 2024-08-21 12:33 | History & Physical Report ---
Date of Service August 21, 2024 Assessment & Plan (1) Obesity affecting : Plan: 24 yo at 38 6/7 wga presents in labor VSS Fetus cat 1 Labor - will admit. Last efw 86%, last baby was high 7lbs and delivered without difficulty, this baby feels low 8s so will monitor GBS neg desires epidural History of Present Illness Chief Complaint: labor Primary Care Provider: NO PCP 24 yo at 38 6/7 presents w/ ctx increasing in frequency and intensity since around 4am. +FM; denies LOF, VB PNI: BMI > 40 Allergies Allergy/AdvReac Type Severity Reaction Status Date / Time bee venom protein (honey bee) Allergy Severe Anaphylaxis Verified 08/16/24 14:08 cat dander Allergy Sneezing Verified 08/21/24 11:27 Home Medications Medication Instructions Recorded Confirmed Type prenat.vits,babak,[id number] 1 tab PO DAILY 10/03/22 08/21/24 History Patient History Medical History (Updated 08/21/24 @ 11:28 by Chelsea Lewis RN) Allergy-induced asthma Varicella vaccination Surgical History History of appendectomy Family History Father Diabetes Hypertension Other Heart disease Myocardial infarction Denies family history of Ovarian cancer Prostate cancer Breast cancer Colorectal cancer Social History (Updated 01/11/24 @ 09:51 by Keyonna Weston) Smoking Status: Never smoker Second Hand Exposure: No; Do You Dip or Chew Tobacco: No; Hx Alcohol Use: No Hx Substance Use: No Preferred Language: Egyptian Communication Ability: Effective Visual Impairment: No Limitations Hearing Ability: Normal Service Center Coordinator Required: No Beliefs That Will Affect Care: None marital status: marital status details: Renan Welch (24) [phone] Current Living Situation: Spouse Current Living Situation Comment: Lives with spouse, son, dog current occupational status: employed current occupation: [employer] Feels Safe at Home: Yes Safety Concerns: Feels Safe At This Time Assistive Devices: None Physical Exam Genitourinary: OB Exam Abdomen: + vertex and + estimated weight (8) Manual OB Exam: + cervical dilation 4 cm (bag slightly bulging), + cervical effacement 70% and + station -2 OB Exam Monitor Tracing: + external FHT monitor used, + external uterine monitor used (q5-7) and + category I (130-135/mod/+accel/-decel) Results & Data Vital Signs (Past 12 Hours) Vital Signs Temp Pulse Resp BP 08/21/24 11:26 97.7 F 104 H 20 134/66 08/21/24 11:21 97.7 F 104 H 20 134/66 Laboratory Results OB Labs: Blood Type O Positive 01/18/24 Antibody Screen NEGATIVE 01/18/24 Hgb 12.1 g/dl (12.0-16.0) 06/07/24 Hct 36.9 % (37.0-47.0) L 06/07/24 MCV 86.8 fL (80.0-100.0) 01/18/24 Plt Count 251 K/uL (130-400) 01/18/24 Rubella IgG Antibody Immune (Immune) 01/18/24 RPR Nonreactive (Nonreactive) 01/18/24 Treponema pallidum Ab Negative (Negative) 06/07/24 Hep Bs Antigen Negative (Negative) 01/18/24 Hep Bs Antigen NON-REACTIVE (NON-REACTIVE) 02/24/22 Hepatitis C Antibody Negative (Negative) 01/18/24 Hepatitis C Ab (EIA) NON-REACTIVE (NON-REACTIVE) 02/24/22 HIV 1&2 Ab/P24 Ag 4thGn Negative (Negative) 01/18/24 HIV (1&2) Ag & Ab Conf NON-REACTIVE (NON-REACTIVE) 02/24/22 Glucose 1 Hr 50 gm 105 mg/dl (70-130) 06/07/24 OB Optional Labs: Chlamydia trachomatis RNA Not Detected (NotDetected) 01/18/24 Neisseria gonorrhoeae RNA Not Detected (NotDetected) 01/18/24 Labs Reviewed: No labs to pull forward from prior , HK Declines genetics--mln msafp declines smp declines quad and cfDNA smp Diagnostic Findings 08/02 EFW 75%, AC 77%, DVP wnl; posterior plac Coding Level of Care Code None Diagnoses Obesity affecting O99.210
[2024-08-21] MEDS: LACTATED RINGER'S 1,000 ML IV PRN (12:37)
[2024-08-21 13:01] LABS: Hematocrit (blood only) 35.5 % (37.0-47.0); Hemoglobin 12.2 g/dl (12.0-16.0); Mean Corpuscular Hemoglobin 30.3 pg (25.0-34.0); Mean Corpuscular Hgb Conc 34.4 g/dL (32.0-36.0); Mean Corpuscular Volume 88.1 fL (80.0-100.0); Mean Platelet Volume 10.2 fL (9.4-12.4); Platelet Count 179 K/uL (130-400); RDW Coefficient of Variation 12.9 % (11.5-14.5); RDW Standard Deviation 41.7 fL (36.4-46.3); Red Blood Count 4.03 M/uL (4.20-5.40); White Blood Count 13.28 K/ul (4.8-10.8)
[2024-08-21] MEDS: BUPIVACAINE 0.25% PF 30 ML VIAL ONE (13:39)
[2024-08-21] MEDS: fentANYL 2 MCG/ML BUPIVacaine 0.125%-NSS 100ML BAG ONE (13:39)
[2024-08-21] MEDS: SODIUM CHLORIDE 0.9% PF INJ 10 ML VIAL ONE (13:39)
[2024-08-21] MEDS: LIDOCAINE 2%/EPINEPHRINE 1:200,000 20 ML PF ONE (13:39)
--- NOTE | 2024-08-21 13:44 | Anesthesiology Consultation ---
Date of Service August 21, 2024 Assessment & Plan Chart Review Chart Review: Patient NOT seen in Pre Admission Testing and Acceptable Risk for Labor Epidural Consults Requested none ASA ASA2 Proposed Anesthesia Anesthesia Type: Labor Epidural Risk / Benefits Reviewed With: PT / POA / Parent / Guardian, Accepts Plan and Informed Consent Obtained History Height/Weight Height: 5 ft 4 in Weight: 107.048 kg Allergies Allergy/AdvReac Type Severity Reaction Status Date / Time bee venom protein (honey bee) Allergy Severe Anaphylaxis Verified 08/16/24 14:08 cat dander Allergy Sneezing Verified 08/21/24 11:27 Medications Home Medications Medication Instructions Recorded Confirmed Last Taken prenat.vits,babak,slx-nyzg-xydci 1 tab PO DAILY 10/03/22 08/21/24 08/20/24 08:00 Active Medications Generic Name Dose Route Start Last Admin Trade Name Freq PRN Reason Stop Dose Admin Lactated Ringer's 1,000 mls @ 125 mls/hr 08/21/24 12:25 08/21/24 13:34 Lr IV 08/22/24 12:24 125 mls/hr .Q8H PRN Infusion L&D Protocol Protocol Past Medical History Medical History (Updated 08/21/24 @ 11:28 by Chelsea Lewis RN) Allergy-induced asthma Varicella vaccination Exercise / Class Metabolic Activity II 4-5 Yardwork/Stairs/Walk up hill Past Family History Family History Father Diabetes Hypertension Other Heart disease Myocardial infarction Denies family history of Ovarian cancer Prostate cancer Breast cancer Colorectal cancer Past Surgical History Surgical History History of appendectomy Past Anesthesia History No Hx of Anesthesia Complications and No Family Hx of Anesthesia Complications History of PONV No Hx of PONV and No Hx of Motion Sickness Social History Smoking Status: Never smoker Do You Dip or Chew Tobacco: No Hx Alcohol Use: No Hx Substance Use: No substance use type: does not use Physical Exam Vital Signs Last Vital Signs Temp 36.5 C 08/21/24 11:26 Pulse 100 H 08/21/24 13:41 Resp 20 08/21/24 11:26 BP 123/66 08/21/24 13:41 Pulse Ox 100 08/21/24 13:36 ENMT Mouth: no dentition abnormality Thyromental Distance: > or= 3.5 Finger Breadths Mallampati Class: II Neck normal visual inspection Respiratory normal respiratory effort Auscultation: lungs clear to auscultation bilaterally Cardiovascular Rate/Rhythm: regular rate and regular rhythm Psychiatric Orientation: alert Testing Laboratory Results 08/21/24 12:32
[2024-08-21] MEDS ORDERED: BUPIVACAINE 0.25% PF 30 ML VIAL EPI PRN (13:45)
[2024-08-21] MEDS ORDERED: NALOXONE HCL 0.4 MG/1 ML VIAL/CARP IV PRN (13:45)
[2024-08-21] MEDS ORDERED: LIDOCAINE 2% MPF LOCAL 5 ML VIAL EPI PRN (13:45)
[2024-08-21] MEDS ORDERED: fentANYL 2 MCG/ML BUPIVacaine 0.125%-NSS 100ML BAG EPI PRN (13:45)
[2024-08-21] MEDS ORDERED: ROPIVACAINE 0.5% PF 5 MG/ML 20 ML VIAL EPI PRN (13:45)
[2024-08-21] MEDS ORDERED: NALOXONE HCL 1 MG in SODIUM CHLORIDE 0.9% 1,000 ML IV PRN (13:45)
[2024-08-21] MEDS ORDERED: fentaNYL citrate PF 100 MCG/2 ML VIAL EPI PRN (13:45)
[2024-08-21] MEDS ORDERED: diphenhydrAMINE 50 MG/ML VIAL IV PRN (13:45)
[2024-08-21] MEDS ORDERED: NALBUPHINE HCL INJ 10 MG/ML AMP IV PRN (13:45)
[2024-08-21] MEDS ORDERED: PROMETHAZINE 6.25 MG/50.25 ML BAG IV PRN (13:45)
[2024-08-21] MEDS ORDERED: SODIUM CHLORIDE 0.9% PF INJ 10 ML VIAL EPI PRN (13:45)
[2024-08-21] MEDS ORDERED: ePHEDrine sulfate 50 MG/ML AMP IV PRN (13:45)
[2024-08-21] MEDS ORDERED: ONDANSETRON INJ 2 MG/ML 2 ML VIAL IV PRN (13:45)
[2024-08-21] MEDS: fentaNYL citrate PF 100 MCG/2 ML VIAL ONE (14:23)
[2024-08-21] MEDS: ePHEDrine sulfate 50 MG/ML AMP ONE (14:23)
--- NOTE | 2024-08-21 15:01 | Labor Progress Brief Note ---
Date of Service August 21, 2024 Subjective comfortable w/ epidural, had srom Assessment & Plan (1) Obesity affecting : Plan: 24 yo at 38 6/7 wga presents in labor VSS Fetus cat 1 Labor - progress noted, had srom. Augment prn GBS neg epidural in place Admission and Anticipated Discharge Date Admission Date: August 21, 2024 Physical Exam Genitourinary: Manual OB Exam: + cervical dilation (6-7), + cervical effacement 80% and + station -1 OB Exam Monitor Tracing: + external FHT monitor used, + external uterine monitor used (q5) and + category I (120/mod/+accel/-decel) Results & Data Vital Signs (Past 12 Hours) Vital Signs Temp Pulse Resp BP Pulse Ox 08/21/24 14:56 100 08/21/24 14:56 107 H 08/21/24 14:51 100 08/21/24 14:51 90 08/21/24 14:46 100 08/21/24 14:46 110 H 08/21/24 14:41 99 08/21/24 14:41 88 08/21/24 14:41 89 L 08/21/24 14:41 96 H 08/21/24 14:36 100 08/21/24 14:36 102 H 08/21/24 14:32 105 H 08/21/24 14:32 148/97 H 08/21/24 14:32 92 08/21/24 14:32 111 H 08/21/24 14:31 94 08/21/24 14:31 110 H 08/21/24 14:26 100 08/21/24 14:26 105 H 08/21/24 14:23 94 08/21/24 14:23 91 H 08/21/24 14:21 100 08/21/24 14:21 99 H 08/21/24 14:16 98 08/21/24 14:16 87 08/21/24 14:16 88 08/21/24 14:16 118/75 08/21/24 14:14 92 08/21/24 14:14 95 H 08/21/24 14:11 100 08/21/24 14:11 77 08/21/24 14:09 98 H 08/21/24 14:09 118/65 08/21/24 14:06 100 08/21/24 14:06 125 H 08/21/24 14:01 100 08/21/24 14:01 103 H 08/21/24 13:59 112 H 08/21/24 13:59 121/70 08/21/24 13:56 100 08/21/24 13:56 115 H 08/21/24 13:52 114 H 08/21/24 13:52 128/59 L 08/21/24 13:51 100 08/21/24 13:51 92 H 08/21/24 13:47 101 H 08/21/24 13:47 129/68 08/21/24 13:46 100 08/21/24 13:46 97 H 08/21/24 13:41 100 H 08/21/24 13:41 123/66 08/21/24 13:39 98 H 08/21/24 13:39 119/61 08/21/24 13:37 100 H 08/21/24 13:37 125/75 08/21/24 13:36 100 08/21/24 13:36 97 H 08/21/24 13:33 96 H 08/21/24 13:33 133/66 08/21/24 13:31 85 L 08/21/24 13:31 91 H 08/21/24 13:30 92 08/21/24 13:30 102 H 08/21/24 13:26 100 08/21/24 13:26 95 H 08/21/24 13:21 100 08/21/24 13:21 94 H 08/21/24 13:16 100 08/21/24 13:16 96 H 08/21/24 13:14 109 H 08/21/24 13:14 116/75 08/21/24 13:11 100 08/21/24 13:11 94 H 08/21/24 11:26 97.7 F 104 H 20 134/66 08/21/24 11:21 97.7 F 104 H 20 134/66 Coding Level of Care Code None Diagnoses Obesity affecting O99.210
[2024-08-21 17:39] VITALS: O2SAT 98
[2024-08-21] MEDS: OXYTOCIN 30 UNITS/NSS 30 UNITS/500 ML BAG IV PRN (17:44)
--- NOTE | 2024-08-21 17:57 | Delivery Summary ---
Vaginal Delivery Summary Date of Service August 21, 2024 Vaginal Delivery Summary and 2nd Degree LAC PREOPERATIVE DIAGNOSIS: 1. Single intrauterine at 38 6/7 wga 2. Labor POSTOPERATIVE DIAGNOSIS: 1. Single intrauterine at 38 6/7 wga 2. Labor 3. Delivered PROCEDURE: 1. Normal spontaneous vaginal delivery. SURGEON: Lamar Castellano MD ANESTHESIA: Epidural. QUANTITATIVE BLOOD LOSS: 52 mL FLUIDS: Continuous LR. URINE OUTPUT: 350cc by straight cath after delivery COMPLICATIONS: None. CONDITION: Stable. INDICATIONS: 24 yo at 38 6/7 wga presented with contractions and found to be 4cm. She received an epidural for pain control and underwent srom. She continued to progress spontaneously and desired to push FINDINGS: A viable male , weight pending with Apgars of 8 and 9 at 1 and 5 minutes respectively. SPECIMEN: Cord blood OPERATIVE REPORT: The patient progressed to 10 cm, 100% effaced and +2 station, pushed over intact perineum with anesthesia to deliver a viable male infant, weight and Apgars as above. Head of delivered in WILLIE position. Nuchal cord could not be easily reduced so delivered through. Body and shoulders were delivered without difficulty with body cord that was also noted. was delivered to maternal abdomen and nursing staff. Delayed cord clamping was performed for 60 seconds. Cord was clamped and cut. Cord blood was obtained. Placenta delivered spontaneously intact with 3-vessel cord. IV oxytocin and fundal massage were given for excellent hemostasis. Vagina, cervix, perineum, and placenta were inspected. A second degree laceration was repaired using 3-0 vicryl. There was excellent hemostasis. Sponge and needle counts correct x2. No sponges were left behind. Mother and stable in immediate period. [facility] [place] Vaginal Delivery Charge Vaginal Delivery Codes: 40634 global code for the antepartum, delivery, and post- Delivery Type Details: and 2nd Degree LAC
--- NOTE | 2024-08-21 18:00 | Anesthesia Procedure Note ---
Date of Service August 21, 2024 Anesthesia Post Epidural Note Vital Signs Vital Signs: Temp Pulse Resp BP Pulse Ox 36.5 C 108 H 20 121/58 L 98 08/21/24 17:00 08/21/24 17:46 08/21/24 11:26 08/21/24 17:46 08/21/24 17:37 Notes Mental Status: alert / awake / arousable Nausea / Vomiting: adequately controlled Pain: adequately controlled Airway Patency, RR, SpO2: stable & adequate BP & HR: stable & adequate Hydration State: stable & adequate Neuraxial Anesthesia: was administered and sensory block is resolving Anesthetic Complications: no major complications apparent and Pt Satisfied with anesthetic care Epidural: Removed without complications and With tip intact
[2024-08-21] MEDS ORDERED: OXYTOCIN 30 UNITS/NSS 30 UNITS/500 ML BAG IV PRN (18:01)
[2024-08-21] MEDS ORDERED: HYDROCORTISONE ACETATE 25 MG SUPP PR PRN (18:01)
[2024-08-21] MEDS ORDERED: ACETAMINOPHEN 325 MG TAB PO PRN (18:01)
[2024-08-21] MEDS ORDERED: bisacodyL 10 MG SUPP PR PRN (18:01)
[2024-08-21] MEDS: LIDOCAINE 2%/EPINEPHRINE 1:200,000 20 ML PF EPI STA (18:11)
[2024-08-21] MEDS: SODIUM CHLORIDE 0.9% PF INJ 10 ML VIAL EPI STA (18:11)
[2024-08-21] MEDS: BUPIVACAINE 0.25% PF 30 ML VIAL EPI STA (18:11)
[2024-08-21] MEDS: fentaNYL citrate PF 100 MCG/2 ML VIAL EPI STA (18:11)
[2024-08-21] MEDS: DIPHTHER/TETAN/PERTUS Vaccine (Tdap, Adol/Adult) 0.5mL IM ONE (18:12)
[2024-08-21] MEDS: IBUPROFEN 600 MG TAB PO PRN (19:51)
[2024-08-21] MEDS: BENZOCAINE 20% SPRY 85 APPLN/85 GM CAN EXT PRN (19:51)
[2024-08-21] MEDS: DOCUSATE SODIUM 100 MG CAP PO SCH (21:05)
[2024-08-22 00:52] VITALS: RESP 18
--- NOTE | 2024-08-22 06:17 | Obstetrical Progress Note ---
Date of Service <Leslie Samano MD - Last Filed: 08/22/24 07:08> August 22, 2024 Assessment & Plan <Leslie Samano MD - Last Filed: 08/22/24 07:08> (1) care and examination: Plan PPD#1: Stable. Rh+, gbs -, ri, vitals & H/H wnl Continue routine care, ambulation, diet as tolerated Plan for DC: today after baby is circumcised & 24h pp <Lamar Castellano MD - Last Filed: 08/22/24 07:34> (1) care and examination: Subjective <Leslie Samano MD - Last Filed: 08/22/24 07:08> Patient is a 24 y/o female who is PPD#1 following at 38 6/7 weeks. Mild (1/) abd pain/cramping, well managed w tylenol Is voiding, tolerating meals, and ambulating normally Lochia appropriate, diminishing Planning for exclusive . Would like to go home this evening Constitutional: no fever, no chills or no sweats Respiratory: no dyspnea Cardiovascular: no chest pain, no palpitations or no calf pain Breast: no breast pain Gastrointestinal: no nausea or no vomiting Genitourinary (female): no dysuria Neurologic: no headache(s) no changes in vision, no headaches Physical Exam <Lesile Samano MD - Last Filed: 08/22/24 07:08> General: Alert, oriented. No acute distress. Cardiac: Regular rate and rhythm, no murmurs, rubs, or gallops. Respiratory: Clear to auscultation bilaterally. No increased work of breathing. Symmetrical chest rise. No respiratory distress. Abdomen: Soft, nontender, nondistended. Bowel sounds present. Uterus: Uterine fundus firm, nontender, palpable at the level of the umbilicus. Lower extremities: No lower extremity edema or swelling. No deep calf pain. Results & Data <Leslie Samano MD - Last Filed: 08/22/24 07:08> Vital Signs (Past 12 Hours) Vital Signs Temp Pulse Pulse Resp BP BP O2 Del Method 08/22/24 04:40 36.7 C 85 18 119/76 Room Air 08/22/24 00:40 37.0 C 85 18 113/69 Room Air 08/21/24 20:50 37.0 C 94 H 18 121/68 Room Air 08/21/24 20:02 16 08/21/24 20:01 92 H 08/21/24 20:01 114/55 L 08/21/24 19:46 101 H 08/21/24 19:46 114/55 L 08/21/24 19:32 16 08/21/24 19:31 108 H 08/21/24 19:31 109/53 L 08/21/24 19:17 104 H 08/21/24 19:17 122/60 08/21/24 19:02 37.1 C 18 08/21/24 19:00 98 H 08/21/24 19:00 133/59 L 08/21/24 18:31 94 H 08/21/24 18:31 143/64 H 08/21/24 18:16 95 H 08/21/24 18:16 145/63 H Laboratory Results 08/21/24 12:32 Supervising Physician <Lamar Castellano MD - Last Filed: 08/22/24 07:34> Co-Signing Physician Notes Resident Physician Supervision Note: I interviewed and examined the patient. Discussed with Dr. Samano and agree with findings and plan as documented in the note. Any exceptions or clarifications are listed here: PP1 s/p , doing well. Desires dc at 24 hrs, ok to do so Documented By: Lamar Castellano MD Resident Activity Tracking <Leslie Samano MD - Last Filed: 08/22/24 07:08> Resident Involvement: Resident Care Provided Care Provided: Adult Hospital Medicine
[2024-08-22] MEDS: FERROUS SULFATE 325 MG TAB PO SCH (08:13)
[2024-08-22] MEDS: PRENATAL VITAMIN 1 TAB PO SCH (08:13)
[2024-08-22 17:47] VITALS: BP 116/76; PULSE 82; TEMP 98.4
[2024-08-22] MEDS ORDERED: bisacodyL 5 MG TABEC PO SCH (20:00)
== END 2024-08-22 19:00 | disposition home or self-care (01) | DRG 807 ==
LOC: OPB 11:09 → 4S1 11:14 → 4E2 20:43